=== PATIENT | male | born 1985 | race Caucasian/White ===

== ENCOUNTER 2020-11-27 01:17 | Emergency (ER) | payer OTHER ==
[2020-11-27 01:34] VITALS: BP 182/95; PULSE 106; TEMP 98; BMI 33.2
[2020-11-27] MEDS ORDERED: DIPHTH,PERTUSS(ACELL),TET 0.5 ML DISP.SYRIN IM ONE ×2 (01:55→02:12)
[2020-11-27] MEDS ORDERED: IBUPROFEN 600 MG TABLET (FP) PO ONE ×2 (01:55→02:11)
[2020-11-27] MEDS ORDERED: CEPHALEXIN MONOHYDRATE 500 MG CAPSULE (UD) PO ONE (01:58)
[2020-11-27] MEDS ORDERED: CEPHALEXIN MONOHYDRATE 500 MG CAPSULE (UD) ONE (02:11)
== END 2020-11-27 03:31 | disposition home or self-care (01) ==
LOC: JER 01:17
PROC: 0HQGXZZ Repair Left Hand Skin, External Approach (ICD-10-PCS; principal; 2020-11-27)
PROC: 3E0234Z Introduction of Serum, Toxoid and Vaccine into Muscle, Percutaneous Approach (ICD-10-PCS; 2020-11-27)
DX: S61.221A Laceration with foreign body of left index finger without damage to nail, initial encounter (principal)
CPT/HCPCS: 90715; 99285-25